=== PATIENT | female | born 1980 | race Caucasian/White ===

== ENCOUNTER 2022-02-13 23:11 | Emergency (ER) | payer OTHER ==
[~2022-02-13] VITALS: Ht 167.6 cm; Wt 63.5 kg
[2022-02-13 23:31] VITALS: BP 128/98
--- NOTE | 2022-02-14 00:46 | NUR ---
Patient taken to radiology dept via wheelchair.
--- NOTE | 2022-02-14 02:24 | NUR ---
PT TAKEN TO BED 2.
--- NOTE | 2022-02-14 02:31 | NUR ---
41 YO F BIB SELF WITH C/C OF COUGH X2.5 WKS. PT REPORTS A SORE THRAOAT. DENIES SOB, FEVER, CONGESTION. PT STATES SHE HAS BEEN TAKING MUCINEX WITH SOME RELIEF BUT JUST RAN OUT. LUNG SOUNDS ARE CLEAR. PT GIVEN WATER PER REQUEST. HX:HTN, ALCOHOLIC RX:LISINOPRIL NKA
[2022-02-14] MEDS ORDERED: PRED20TA5 PO ×2 (02:46→02:57)
[2022-02-14 03:00] VITALS: BP 131/103
--- NOTE | 2022-02-14 03:00 | NUR ---
PT OFFERED PASCUAL, STATES "IT'S OK, I CAN WALK".
== END 2022-02-14 03:00 | disposition home or self-care (01) ==
LOC: MED 23:11
DX: R05.9 Cough, unspecified (principal); I10 Essential (primary) hypertension; Z72.89 Other problems related to lifestyle
CPT/HCPCS: 71045; 99283